=== PATIENT | male | born 1960 | race Caucasian/White ===

== ENCOUNTER 2016-05-07 08:30 | Emergency (ER) | payer OTHER ==
--- NOTE | 2016-05-07 08:41 | Emergency Department Record ---
History of Present Illness - General Chief Complaint: Back Pain/Injury Stated Complaint: BACK PAIN Time Seen by Provider: 05/07/16 08:39 Source: Patient Mode of Arrival: Ambulatory Limitations: No limitations - History of Present Illness Initial Comments: The patient is here due to waking up about 2 hours ago with R upper back pain. The pain is mild to moderate and is sharp and stabbing and is slightly worse with deep breaths, twisting and bending. There is no L sided CP, or any JERSON, cough, SOB or sweating. The patient denies any injury, trauma, recent travel, or hx of previous similar issues. The pain does radiate around the chest to the R ribs at times with deep breaths. MD Complaint: Back pain Onset/Timin -: Hour(s) Similar Symptoms Previously: No Place: Home Radiation: None Severity scale (1-10): 3 Quality: Dull Consistency: Constant Improves With: None Worsens With: Deep breaths/cough Context: Unknown Associated Symptoms: Denies other symptoms - Related Data Home Medications Medication Instructions Recorded Confirmed Last Taken Bupropion HCl [Bupropion Xl] 150 mg PO DAILY 10/18/13 05/07/16 10/18/13 Duloxetine HCl [Duloxetine HCl] 60 mg PO DAILY 10/18/13 05/07/16 10/17/13 Pantoprazole Sodium 40 mg PO DAILY 10/18/13 05/07/16 10/17/13 Divalproex Sodium [Depakote] 250 mg PO DAILY 05/07/16 05/07/16 Unknown Previous Rx's Medication Instructions Recorded Naproxen [Naprosyn] 500 mg PO BID #14 tablet. 05/07/16 Allergies Allergy/AdvReac Type Severity Reaction Status Date / Time No Known Drug Allergies Allergy Unverified 09/03/15 18:15 Travel Screening - Travel/Exposure Within Last 30 Days Have you traveled within the last 30 days?: No Review of Systems Constitutional: Denies: Chills, Fever Eyes: Denies: Eye discharge ENT: Denies: Congestion Respiratory: Denies: Cough, Dyspnea Past Medical History - SOCIAL HISTORY Smoking Status: Never smoker Alcohol Use: None Drug Use: None - RESPIRATORY Hx Respiratory Disorders: Yes Comment:: Pneumothorax - CARDIOVASCULAR Hx Cardio Disorders: Yes Hx Hypertension: Yes Hx Irregular Heartbeat: Yes - NEURO Hx Neuro Disorders: No - GI Hx GI Disorders: Yes 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 negative: Tenderness - Respiratory Respiratory exam: Normal lung sounds bilaterally, Chest wall tenderness (The pain is mildly reproducible with palpation to the R upper back medial to the scapula.). negative: Decreased breath sounds, Respiratory distress, Wheezes - Cardiovascular Cardiovascular Exam: Regular rate, Normal rhythm, Normal heart sounds - GI/Abdominal GI/Abdominal exam: Soft, Normal bowel sounds. negative: Tenderness - Extremities Extremities exam: Normal inspection, Full ROM, Normal capillary refill. negative: Calf tenderness, Tenderness - Neurological Neurological exam: Alert, Normal gait. negative: Abnormal gait, Motor sensory deficit Course Vital Signs 05/07/16 08:36 Temperature 98.0 F Pulse Rate 80 Respiratory 20 Rate Blood Pressure 136/92 Pulse Ox 95 - Reevaluation(s) Reevaluation #1: The patient is doing very well at this time and has had no tachycardia or tachypnea. He is resting comfortably with no anterior chest pain, SOB or JERSON. The pain is has mostly resolved with the Toradol and now he only feels it with certain twisting movements or bending. I explained to him the test results are all WNL and I strongly doubt any serious cardiac or pulmonary pathology. The patient feels comfortable going home and will see his PCP if not better in 2-3 days. He also is instructed to return for any increased pain, trouble breathing or fever. 05/07/16 09:59 05/07/16 10:20 Medical Decision Making - Data Complexity MDM Data: Labs Ordered and/or Reviewed, X-Ray Ordered and/or Reviewed, EKG Ordered and/or Reviewed - Lab Data Result diagrams: 05/07/16 08:55 05/07/16 08:55 - EKG Data -: EKG Interpreted by Me EKG: No Acute Changes, Normal EKG, Unchanged From Previous - Radiology Data Radiology results: Report reviewed (CXR: R lung WNL. L side with small effusion and pleurla thickening with incompletely healead L rib fx's.) Disposition Disposition: Discharge Clinical Impression: Thoracic back pain Qualifiers: Chronicity: acute Back pain laterality: right Qualified Code(s): M54.6 - Pain in thoracic spine Disposition: Home, Self-Care Condition: (1) Good Instructions: Muscle Strain (ED) Additional Instructions: Please take the Naprosyn for pain with food. Please see your PCP if not better in 2-3 days. Return to the ER for any increased pain, any L sided chest pain, or any trouble breathing, shortness of breath or fever. Prescriptions: Naproxen [Naprosyn] 500 mg PO BID #14 tablet.dr Forms: Patient Portal Access Time of Disposition: 09:57
[2016-05-07 09:03] LABS: HEMOGLOBIN 15.2 gm/dl (14.0-18.0); MEAN CELL VOLUME 91.6 fl (81-97); MEAN CORPUSCULAR HGB CONC 33.8 g/dl (32-36); MEAN PLATELET VOLUME 9.2 fl (7.4-10.4); PLATELET COUNT 488 K/uL (130-400); RED BLOOD COUNT 4.91 M/uL (4.40-5.70); RED CELL DISTRIBUTION WIDTH 14.7 % (11.5-14.5); WHITE BLOOD COUNT W/O DIFF 10.9 K/uL (4.2-12.2)
[2016-05-07 09:12] LABS: PLATELET ESTIMATE NORMAL (NORMAL)
[2016-05-07 09:14] LABS: ANION GAP 10.1 (7-16); BLOOD UREA NITROGEN 17 mg/dL (9-20); CARBON DIOXIDE 28.9 mmol/L (22-30); CREATINE PHOSPHOKINASE 49 U/L (55-170); EST GLOMERULAR FILTRATION RATE > 60 ml/min; GLUCOSE,RANDOM 202 mg/dL (70-110)
[2016-05-07] MEDS ORDERED: KETOROLAC 30 MG/ML VIAL IVP ONE (09:21)
[2016-05-07 09:23] LABS: CKMB 0.5 ug/L (0-6)
[2016-05-07 09:27] LABS: TROPONIN I < 0.012 ng/mL (0.00-0.034)
== END 2016-05-07 10:03 | disposition home or self-care (01) ==
LOC: ER 08:30
DX: M54.6 Pain in thoracic spine (principal); R07.89 Other chest pain; I10 Essential (primary) hypertension
CPT/HCPCS: 99284 ×2; 96374; 82550; 82553; 84484; 80048; 85379; 85027; 71020; 93005; 93010; J1885

== ENCOUNTER 2016-08-11 17:55 | Emergency (ER) | payer OTHER ==
[2016-08-11] MEDS ORDERED: 0.9 % SODIUM CHLORIDE 1,000 ML BAG IV ONE (18:15)
--- NOTE | 2016-08-11 18:18 | Emergency Department Record ---
History of Present Illness - General Chief Complaint: Fall Injury Stated Complaint: FELL INJURED BACK Time Seen by Provider: 08/11/16 18:05 Source: Patient Mode of Arrival: Ambulatory - History of Present Illness Initial Comments: The patient was folding some sheet metal on his driveway when it snapped back sending him onto his back onto the cement. He states he did not hit the back of his head. He took some motrin prior to arrival and came in here. Pain is around the lower chest and upper abdomen 360 degrees around, and is worse with any movement or deep breathing. He denies injury to his extremities, hips, neck or head. MD Complaint: Fall Onset/Timin -: Minutes(s) Fall From: Standing When Fall Occurred: Just prior to arrival Fall Witnessed: Yes, by family Place Fall Occurred: Home Loss of Consciousness: None Prolonged Down Time?: No Symptoms Prior to Fall: None Location: Back Severity: Moderate Severity scale (1-10): 7 Quality: Aching Associated Symptoms: Denies - Lorman Coma Scale Eye Response: (4) Open spontaneously Motor Response: (6) Obeys commands Verbal Response: (5) Oriented Kiran Total: 15 - Related Data Home Medications Medication Instructions Recorded Confirmed Last Taken Bupropion HCl [Bupropion Xl] 150 mg PO DAILY 10/18/13 08/11/16 10/18/13 Duloxetine HCl [Duloxetine HCl] 60 mg PO DAILY 10/18/13 08/11/16 10/17/13 Divalproex Sodium [Depakote] 250 mg PO DAILY 05/07/16 08/11/16 Unknown Previous Rx's Medication Instructions Recorded Naproxen [Naprosyn] 500 mg PO BID #14 tablet. 05/07/16 Diazepam [Valium] 10 mg PO TID PRN #7 tab 08/11/16 Hydrocodone/Acetaminophen [Walnut 1 tab PO Q8H PRN #7 tab 08/11/16 10mg/325mg] Allergies Allergy/AdvReac Type Severity Reaction Status Date / Time No Known Drug Allergies Allergy Verified 08/11/16 18:00 Travel Screening - Travel/Exposure Within Last 30 Days Have you traveled within the last 30 days?: No Review of Systems Reviewed: No additional complaints except as noted below Constitutional: Reports: As per HPI. Denies: Chills, Fever, Malaise, Night sweats, Weakness, Weight change Eyes: Reports: As per HPI. Denies: Eye discharge, Eye pain, Photophobia, Vision change ENT: Reports: As per HPI. Denies: Congestion, Dental pain, Ear pain, Epistaxis , Hearing loss, Throat pain Respiratory: Reports: As per HPI. Denies: Cough, Dyspnea, Hemoptysis, Stridor, Wheezes Cardiovascular: Reports: As per HPI. Denies: Arrhythmia, Chest pain, Dyspnea on exertion, Edema, Murmurs, Orthopnea, Palpitations, Paroxysmal nocturnal dyspnea, Rheumatic Fever, Syncope Endocrine: Reports: As per HPI. Denies: Fatigue, Heat or cold intolerance, Polydipsia, Polyuria Gastrointestinal: Reports: As per HPI. Denies: Abdominal pain, Constipation, Diarrhea, Hematemesis, Hematochezia, Melena, Nausea, Vomiting Genitourinary: Reports: As per HPI. Denies: Dysuria, Frequency, Hematuria, Incontinence, Retention, Testicular pain, Testicular mass, Urgency Musculoskeletal: Reports: As per HPI. Denies: Arthralgia, Back pain, Gout, Joint swelling, Myalgia, Neck pain Skin: Reports: As per HPI. Denies: Bruising, Change in color, Change in hair/ nails, Lesions, Pruritus, Rash Neurological: Reports: As per HPI. Denies: Abnormal gait, Confusion, Headache, Numbness, Paresthesias, Seizure, Tingling, Tremors, Vertigo, Weakness Psychiatric: Reports: As per HPI. Denies: Anxiety, Auditory hallucinations, Depression, Homicidal thoughts, Suicidal thoughts, Visual hallucinations Hematological/Lymphatic: Reports: As per HPI. 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 - Hx Genitourinary Disorders: No - ENDOCRINE Hx Endocrine Disorders: No - MUSCULOSKELETAL Hx Musculoskeletal Disorders: No - PSYCH Hx Psych Problems: No - HEMATOLOGY/ONCOLOGY Hx Hematology/Oncology Disorders: No Family Medical History Any Significant Family History?: Yes Hx HTN: Father Physical Exam - General General Appearance: Alert, Oriented x3, Cooperative, Moderate distress - Head Head exam: Atraumatic, Normal inspection - Eye Eye exam: Normal appearance, PERRL Pupils: Normal accommodation - ENT ENT exam: Normal exam, Mucous membranes moist, Normal external ear exam, Normal orophraynx, TM's normal bilaterally Ear exam: Normal external inspection. negative: External canal tenderness Nasal Exam: Normal inspection. negative: Discharge, Sinus tenderness Mouth exam: Normal external inspection, Tongue normal Teeth exam: Normal inspection. negative: Dental caries Throat exam: Normal inspection. negative: Tonsillar erythema, Tonsillar exudate - Neck Neck exam: Normal inspection, Full ROM. negative: Lymphadenopathy, Meningismus , Tenderness - Respiratory Respiratory exam: Normal lung sounds bilaterally, Chest wall tenderness (tender diffusely around lower ribs on lateral compression, no crepitance or point tenderness). negative: Respiratory distress - Cardiovascular Cardiovascular Exam: Regular rate, Normal rhythm, Normal heart sounds - GI/Abdominal GI/Abdominal exam: Soft, Normal bowel sounds, Tenderness (tender across upper abdomen bilaterally just beneath ribs, no rigidity) - Rectal Rectal exam: Deferred - exam: Deferred - Extremities Extremities exam: Normal inspection, Full ROM, Normal capillary refill. negative: Calf tenderness, Pedal edema, Tenderness - Back Back exam: Reports: Normal inspection, Full ROM, Paraspinal tenderness (lower T spine bilaterally ). Denies: Muscle spasm, Rash noted, Tenderness - Neurological Neurological exam: Alert, CN II-XII intact, Normal gait, Oriented X3, Reflexes normal - Psychiatric Psychiatric exam: Normal affect, Normal mood - Skin Skin exam: Diaphoretic (trace diaphoretic on his back, just came in from 85 degree day.), Dry, Intact, Normal color, Warm Course Vital Signs 08/11/16 18:00 Temperature 98.6 F Pulse Rate 83 Respiratory 20 Rate Blood Pressure 146/83 Pulse Ox 95 - Reevaluation(s) Reevaluation #1: Patient is requesting more pain medication. Awaiting CT reading. 08/11/16 19:49 Reevaluation #2: Diaphoresis has resolved. Patient is ready for DC. 08/11/16 20:18 Medical Decision Making - Management Options MDM Management: No Additional Work-up Planned - Data Complexity MDM Data: Labs Ordered and/or Reviewed, X-Ray Ordered and/or Reviewed (Contrast Chest/Abd/Pelvis CT: negative for acute fractures or abnormalities. Per radiologist.) - Lab Data Result diagrams: 08/11/16 18:28 08/11/16 18:28 Disposition Disposition: Discharge Clinical Impression: Contusion, trunk, multiple sites Qualifiers: Encounter type: initial encounter Qualified Code(s): S20.20XA - Contusion of thorax, unspecified, initial encounter Fall Qualifiers: Encounter type: initial encounter Qualified Code(s): W19.XXXA - Unspecified fall, initial encounter Disposition: Home, Self-Care Condition: (1) Good Instructions: Fall Prevention for Older Adults (ED) Additional Instructions: No lifting bending twisting. Continue present meds. Walnut 1 every 8 hours for severe pain IF NEEDED. Valium 1 every 8 hours for Muscle spasm IF NEEDED. Both likely to cause drowsiness--no driving or operating machinery, etc. Follow up with PCP as needed. Off work 3 days. Prescriptions: Diazepam [Valium] 10 mg PO TID PRN #7 tab PRN Reason: Muscle Spasms Hydrocodone/Acetaminophen [Walnut 10mg/325mg] 1 tab PO Q8H PRN #7 tab PRN Reason: Pain - General
[2016-08-11 18:33] LABS: BASO % 0.2 % (0-6); EOS % 0.9 % (0-6); GRAN % 53.1 % (47-80); HEMATOCRIT 45.1 % (42.0-52.0); HEMOGLOBIN 15.4 gm/dl (14.0-18.0); LYMPH % 36.1 % (16-45); MEAN CELL VOLUME 92.4 fl (81-97); MEAN CORPUSCULAR HEMOGLOBIN 31.6 pg (27-33); MEAN CORPUSCULAR HGB CONC 34.1 g/dl (32-36); MEAN PLATELET VOLUME 9.5 fl (7.4-10.4); MONO % 9.7 % (0-9); PLATELET COUNT 473 K/uL (130-400); RED BLOOD COUNT 4.88 M/uL (4.40-5.70); WHITE BLOOD COUNT W/O DIFF 12.3 K/uL (4.2-12.2)
[2016-08-11 18:35] LABS: URINE APPEARANCE CLEAR; URINE BILIRUBIN SMALL (NEGATIVE); URINE BLOOD NEGATIVE (NEGATIVE); URINE COLOR YELLOW; URINE GLUCOSE (UA) NEGATIVE (NEGATIVE); URINE KETONE TRACE (NEGATIVE); URINE LEUKOCYTE ESTERASE NEGATIVE (NEGATIVE); URINE NITRITE NEGATIVE (NEGATIVE); URINE PROTEIN TRACE (NEGATIVE)
[2016-08-11] MEDS ORDERED: ONDANSETRON HCL IV 4 MG/2 ML VIAL IVP ONE (18:35)
[2016-08-11] MEDS ORDERED: ORPHENADRINE CITRATE 60MG/2ML VIAL IVP ONE (18:35)
[2016-08-11] MEDS ORDERED: HYDROMORPHONE HCL 1 MG/ML CPJ IVP ONE ×2 (18:35→19:48)
[2016-08-11 18:45] LABS: ANION GAP 12.4 (7-16); BLOOD UREA NITROGEN 22 mg/dL (9-20); CARBON DIOXIDE 28.6 mmol/L (22-30); CREATININE 1.2 mg/dL (0.66-1.25); EST GLOMERULAR FILTRATION RATE > 60 ml/min; GLUCOSE,RANDOM 168 mg/dL (70-110); LIPASE 78 U/L (23-300)
[2016-08-11 18:46] LABS: INR 0.92; PARTIAL THROMBOPLASTIN TIME 27.4 SECONDS (24.5-39.1); PROTHROMBIN TIME (PATIENT) 10.4 SECONDS (9.5-12.1)
[2016-08-11] MEDS ORDERED: HYDROCODONE/APAP 10/325 TABLET PO ONE (20:10)
[2016-08-11] MEDS ORDERED: DIAZEPAM 5 MG TABLET PO ONE (20:10)
--- NOTE | 2016-08-12 08:56 | CT SCAN REPORT ---
EXAM: CT SCAN OF THE CHEST WITH CONTRAST HISTORY: BACK PAIN AND ANTERIOR BILATERAL RIB PAIN STATUS POST FALL. TECHNIQUE: Standard CT imaging of the chest was performed in the axial plane with contrast. 100 ml of Omnipaque 300 were administered. Additional coronal and sagittal reformatted images were also performed. Comparison: 10/18/13. Encounter: Initial. FINDINGS: The heart and great vessels are normal. There is no mediastinal or hilar lymphadenopathy. There is stable parenchymal scarring at the left lung base. The lungs are clear. There are no acute infiltrates or effusions. There is no pneumothorax. There are multiple old healed left rib fractures, all of which appear unchanged. There is chronic deformity of the anterior ribs and xiphoid process of the scapula. These areas are unchanged. There is no visible acute fracture. Degenerative changes are present within the thoracic spine. The spleen is surgically absent. The upper abdomen is otherwise unremarkable. IMPRESSION: 1. NO ACUTE INTRATHORACIC PATHOLOGY. 2. CHRONIC FINDINGS ABOVE. JOB NUMBER: [id number] [facility]
--- NOTE | 2016-08-12 09:02 | CT SCAN REPORT ---
EXAM: CT SCAN OF THE ABDOMEN AND PELVIS WITH CONTRAST HISTORY: BACK PAIN STATUS POST FALL ON CEMENT. TECHNIQUE: Standard CT imaging of the abdomen and pelvis was performed with contrast. 100 ml of Omnipaque 300 were administered. Comparison: 10/18/13. FINDINGS: The liver is normal. The gallbladder, biliary tree, pancreas, and adrenal glands are normal. The patient is status post splenectomy. There are multiple old healed left lower rib fractures. There is chronic deformity of the left lower ribs and anterior costicartilages. These areas are unchanged. The kidneys and ureters are normal. The aorta is normal in caliber. There are scattered diverticula within the sigmoid colon with no evidence for acute diverticulitis. The large and small bowel loops are otherwise normal. There is no pneumoperitoneum or ascites. The urinary bladder and prostate gland appear normal. Extensive degenerative changes are present within the lumbar spine. There are no acute osseous abnormalities. IMPRESSION: 1. NO ACUTE INTRAABDOMINAL PATHOLOGY. 2. STATUS POST SPLENECTOMY. 3. OLD HEALED RIB FRACTURES. 4. EXTENSIVE MULTILEVEL DEGENERATIVE CHANGES WITHIN THE LUMBAR SPINE. 5. SIGMOID DIVERTICULOSIS WITH NO DIVERTICULITIS. JOB NUMBER: [id number] [facility]
== END 2016-08-11 20:55 | disposition home or self-care (01) ==
LOC: ER 17:55
DX: S20.20XA Contusion of thorax, unspecified, initial encounter (principal); R07.89 Other chest pain; R51 Headache; M54.6 Pain in thoracic spine; R10.11 Right upper quadrant pain; R10.12 Left upper quadrant pain; W18.09XA Striking against other object with subsequent fall, initial encounter; Y92.008 Other place in unspecified non-institutional (private) residence as the place of occurrence of the external cause
CPT/HCPCS: 99284 ×2; 96376; 96374; 96375; 83690; 85025; 85730; 85610; 80048; 81003; 71260; 74177; Q9967; J3490 ×2; J2405; J1170; J2360; J7030

== ENCOUNTER 2016-09-19 11:04 | Emergency (ER) | payer OTHER ==
--- NOTE | 2016-09-19 11:50 | Emergency Department Record ---
History of Present Illness - General Chief Complaint: Laceration(s) Stated Complaint: LAC ON FOREHEAD Time Seen by Provider: 09/19/16 11:45 Source: Patient Mode of Arrival: Ambulatory Limitations: No limitations - History of Present Illness Initial Commments: The patient fell out of bed 9-10 hours ago and sustained a laceration to his forehead. He denies any LOC, SCHERER, neck pain or nausea. He states his Td is not utd. Onset/Timin -: Hour(s) Place: Home Context: Accidental - Kiran Coma Scale Eye Response: (4) Open spontaneously Motor Response: (6) Obeys commands Verbal Response: (5) Oriented Baldwin Total: 15 - Related Data Home Medications Medication Instructions Recorded Confirmed Last Taken Bupropion HCl [Bupropion Xl] 150 mg PO DAILY 10/18/13 09/19/16 09/19/16 Duloxetine HCl [Duloxetine HCl] 60 mg PO DAILY 10/18/13 09/19/16 09/18/16 Divalproex Sodium [Depakote] 250 mg PO DAILY 05/07/16 09/19/16 09/18/16 Previous Rx's Medication Instructions Recorded Naproxen [Naprosyn] 500 mg PO BID #14 tablet. 05/07/16 Cephalexin [Keflex] 500 mg PO QID #20 cap 09/19/16 Allergies Allergy/AdvReac Type Severity Reaction Status Date / Time No Known Drug Allergies Allergy Verified 09/19/16 11:35 Travel Screening - Travel/Exposure Within Last 30 Days Have you traveled within the last 30 days?: No - Travel/Exposure Within Last Year Have you traveled outside the [place] 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 negative: Atraumatic, Normal inspection (There is a 3 cm laceration to the mid frontal area.) Image of Face/Head: 1 - Oblique 3 cm lac - Eye Eye exam: Normal appearance, PERRL, EOMI - ENT ENT exam: Normal exam, Mucous membranes moist, Normal external ear exam, Normal orophraynx, TM's normal bilaterally (Neg hemotympanum.) - Neck Neck exam: Normal inspection, Full ROM. negative: Tenderness (There is no posterior tenderness.) - Respiratory Respiratory exam: Normal lung sounds bilaterally. negative: Respiratory distress - Cardiovascular Cardiovascular Exam: Regular rate, Normal rhythm, Normal heart sounds - Neurological Neurological exam: Alert, Normal gait, Oriented X3, Other (Neg Drift and Rhomberg.). negative: Abnormal gait, Motor sensory deficit Course Vital Signs 09/19/16 11:25 Temperature 98.1 F Pulse Rate [ 88 Pulse Ox Probe] Respiratory 16 Rate Blood Pressure 127/80 [Left Arm] Pulse Ox 94 L - Reevaluation(s) Reevaluation #1: Procedure note: The forehead lac was cleansed with betadine and anesth. with Lido 1% with Epi. The wound was explored and cleansed with sterile saline. The lac was then sutured with 6 5.0 nylon sutures. There were no complications. 09/19/16 12:23 Reevaluation #2: The patient is doing very well at this time. He denies any SCHERER, nausea or visual changes. 09/19/16 12:27 Disposition Disposition: Discharge Clinical Impression: Laceration of forehead Qualifiers: Encounter type: initial encounter Qualified Code(s): S01.81XA - Laceration without foreign body of other part of head, initial encounter Disposition: Home, Self-Care Condition: (1) Good Instructions: Laceration (ED) Additional Instructions: Keep dry for 2 days then no soaking. Watch for signs of infection. Have the sutures removed in 7 days. Take Keflex as directed. Prescriptions: Cephalexin [Keflex] 500 mg PO QID #20 cap Forms: Patient Portal Access Time of Disposition: 12:25 Quality - Quality Measures Quality Measures: N/A - Blood Pressure Screening View Details: Yes Does Patient Have Any of the Following: No Blood Pressure Classification: Pre-Hypertensive BP Reading Systolic Measurement: 108 Diastolic Measurement: 81 Screening for High Blood Pressure: < Pre-Hypertensive BP, F/U Documented > [ [id number]] Pre-Hypertensive Follow-up Interventions: Referral to alternative/primary care provider.
[2016-09-19] MEDS: Diph,Pert(Acell),Tet Vac 0.5 ML SYR IM ONE (12:32)
== END 2016-09-19 12:40 | disposition home or self-care (01) ==
LOC: ER 11:04
DX: S01.81XA Laceration without foreign body of other part of head, initial encounter (principal); W06.XXXA Fall from bed, initial encounter; Y92.009 Unspecified place in unspecified non-institutional (private) residence as the place of occurrence of the external cause
CPT/HCPCS: 12013; 90715; 96372; 99283

== ENCOUNTER 2016-09-26 12:30 | Emergency (ER) | payer OTHER ==
--- NOTE | 2016-09-26 12:40 | Emergency Department Record ---
History of Present Illness - General Chief Complaint: Suture removal Stated Complaint: REMOVE STITCHES Time Seen by Provider: 09/26/16 12:33 Source: Patient, RN notes reviewed - History of Present Illness Initial Comments: suture removal MD Complaint: Suture/staple removal Onset/Timin -: Days(s) - Related Data Home Medications Medication Instructions Recorded Confirmed Last Taken Bupropion HCl [Bupropion Xl] 150 mg PO DAILY 10/18/13 09/19/16 09/19/16 Duloxetine HCl [Duloxetine HCl] 60 mg PO DAILY 10/18/13 09/19/16 09/18/16 Divalproex Sodium [Depakote] 250 mg PO DAILY 05/07/16 09/19/16 09/18/16 Previous Rx's Medication Instructions Recorded Naproxen [Naprosyn] 500 mg PO BID #14 tablet. 05/07/16 Cephalexin [Keflex] 500 mg PO QID #20 cap 09/19/16 Allergies Allergy/AdvReac Type Severity Reaction Status Date / Time No Known Drug Allergies Allergy Verified 09/19/16 11:35 Review of Systems Reviewed: No additional complaints except as noted below Constitutional: Reports: As per HPI. Denies: Chills, Fever, Malaise, Night sweats, Weakness, Weight change Eyes: Reports: As per HPI. Denies: Eye discharge, Eye pain, Photophobia, Vision change ENT: Reports: As per HPI. Denies: Congestion, Dental pain, Ear pain, Epistaxis , Hearing loss, Throat pain Respiratory: Reports: As per HPI. Denies: Cough, Dyspnea, Hemoptysis, Stridor, Wheezes Cardiovascular: Reports: As per HPI. Denies: Arrhythmia, Chest pain, Dyspnea on exertion, Edema, Murmurs, Orthopnea, Palpitations, Paroxysmal nocturnal dyspnea, Rheumatic Fever, Syncope Endocrine: Reports: As per HPI. Denies: Fatigue, Heat or cold intolerance, Polydipsia, Polyuria Gastrointestinal: Reports: As per HPI. Denies: Abdominal pain, Constipation, Diarrhea, Hematemesis, Hematochezia, Melena, Nausea, Vomiting Genitourinary: Reports: As per HPI. Denies: Dysuria, Frequency, Hematuria, Incontinence, Retention, Testicular pain, Testicular mass, Urgency Musculoskeletal: Reports: As per HPI. Denies: Arthralgia, Back pain, Gout, Joint swelling, Myalgia, Neck pain Skin: Reports: As per HPI. Denies: Bruising, Change in color, Change in hair/ nails, Lesions, Pruritus, Rash Neurological: Reports: As per HPI. Denies: Abnormal gait, Confusion, Headache, Numbness, Paresthesias, Seizure, Tingling, Tremors, Vertigo, Weakness Psychiatric: Reports: As per HPI. Denies: Anxiety, Auditory hallucinations, Depression, Homicidal thoughts, Suicidal thoughts, Visual hallucinations Hematological/Lymphatic: Reports: As per HPI. 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 - Hx Genitourinary Disorders: No - ENDOCRINE Hx Endocrine Disorders: No - MUSCULOSKELETAL Hx Musculoskeletal Disorders: No - PSYCH Hx Psych Problems: Yes Hx Anxiety: Yes Hx Depression: Yes - HEMATOLOGY/ONCOLOGY Hx Hematology/Oncology Disorders: No Family Medical History Hx HTN: Father Physical Exam - General General Appearance: Alert, Oriented x3, Cooperative, No acute distress - Head Head exam: Normal inspection - Eye Eye exam: Normal appearance, PERRL Pupils: Normal accommodation - ENT ENT exam: Normal exam, Mucous membranes moist, Normal external ear exam, Normal orophraynx, TM's normal bilaterally Ear exam: Normal external inspection. negative: External canal tenderness Nasal Exam: Normal inspection. negative: Discharge, Sinus tenderness Mouth exam: Normal external inspection, Tongue normal Teeth exam: Normal inspection. negative: Dental caries Throat exam: Normal inspection. negative: Tonsillar erythema, Tonsillar exudate - Neck Neck exam: Normal inspection, Full ROM. negative: Tenderness - Respiratory Respiratory exam: Normal lung sounds bilaterally. negative: Respiratory distress - Cardiovascular Cardiovascular Exam: Regular rate, Normal rhythm, Normal heart sounds - GI/Abdominal GI/Abdominal exam: Soft, Normal bowel sounds. negative: Tenderness - Rectal Rectal exam: Deferred - exam: Deferred - Extremities Extremities exam: Normal inspection, Full ROM, Normal capillary refill. negative: Tenderness - Back Back exam: Reports: Normal inspection, Full ROM. Denies: Muscle spasm, Rash noted, Tenderness - Neurological Neurological exam: Alert, Normal gait, Oriented X3, Reflexes normal - Psychiatric Psychiatric exam: Normal affect, Normal mood - Skin Skin exam: Dry, Intact, Normal color, Warm, Other (laceration healing nicely and no signs of infection) Disposition Clinical Impression: Visit for suture removal Disposition: Home, Self-Care Condition: (1) Good Instructions: Stitches Removal (ED) Forms: Patient Portal Access Time of Disposition: 12:39 Quality - Quality Measures Quality Measures: N/A - Blood Pressure Screening Does Patient Have Any of the Following: No Blood Pressure Classification: Pre-Hypertensive BP Reading Systolic Measurement: 153 Diastolic Measurement: 82 Screening for High Blood Pressure: < First Hypertensive BP, F/U Documented > [ G8950] Pre-Hypertensive Follow-up Interventions: Referral to alternative/primary care provider. First Hypertensive Follow-up Interventions: Referral to alternative/primary care provider.
== END 2016-09-26 12:50 | disposition home or self-care (01) ==
LOC: ER 12:30
DX: Z48.02 Encounter for removal of sutures (principal)

== ENCOUNTER 2017-07-11 19:01 | Emergency (ER) | payer BC ==
[2017-07-11] MEDS ORDERED: Diph,Pert(Acell),Tet Vac 0.5 ML SYR IM ONE (19:21)
--- NOTE | 2017-07-11 19:25 | Emergency Department Record ---
History of Present Illness - General Chief Complaint: Laceration(s) Stated Complaint: LACERATION Time Seen by Provider: 07/11/17 19:07 Source: Patient, Family Mode of Arrival: Ambulatory Limitations: No limitations - History of Present Illness Initial Commments: 56 yo male presents with a laceration to the left thumb. He injured his thumb cutting bread with a knife. No weakness, numbness, or tingling. He is unsure of the last tetanus shot. -: Minutes(s) Extremity Location: Left: Hand (Thumb) Place: Home Context: Accidental Treatments Prior to Arrival: Other - Kiran Coma Scale Eye Response: (4) Open spontaneously Motor Response: (6) Obeys commands Verbal Response: (5) Oriented [place] Total: 15 - Related Data Previous Rx's Medication Instructions Recorded Cephalexin [Keflex] 500 mg PO TID #21 cap 07/11/17 Allergies Allergy/AdvReac Type Severity Reaction Status Date / Time No Known Drug Allergies Allergy Unverified 03/29/17 07:28 Review of Systems Constitutional: Denies: Chills, Fever, Weakness Eyes: Denies: Eye discharge ENT: Denies: Congestion, Throat pain Respiratory: Denies: Cough Cardiovascular: Denies: Chest pain Endocrine: Denies: Fatigue Gastrointestinal: Denies: Nausea, Vomiting Genitourinary: Denies: Dysuria, Frequency Musculoskeletal: Denies: Arthralgia, Back pain, Joint swelling, Myalgia Skin: Reports: Other (thumb laceration). 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 - Hx Genitourinary Disorders: No - ENDOCRINE Hx Endocrine Disorders: No - MUSCULOSKELETAL Hx Musculoskeletal Disorders: No - PSYCH Hx Psych Problems: Yes Hx Anxiety: Yes Hx Depression: Yes - HEMATOLOGY/ONCOLOGY Hx Hematology/Oncology Disorders: No Family Medical History Hx HTN: Father Physical Exam - General General Appearance: Alert, Oriented x3, Cooperative, No acute distress Limitations: No limitations - Head Head exam: Atraumatic, Normal inspection - Eye Eye exam: Normal appearance - ENT ENT exam: Normal exam Ear exam: Normal external inspection Nasal Exam: Normal inspection Mouth exam: Normal external inspection - Neck Neck exam: Normal inspection - Cardiovascular Peripheral Pulses: 2+: Radial (L) - Extremities Extremities exam: Full ROM, Normal capillary refill, Other (full thumb flexion and extension, sensation is intact). negative: Normal inspection, Tenderness Image of Hand: 1 - 1 cm superficial linear laceration - Neurological Neurological exam: Alert, Oriented X3. negative: Motor sensory deficit - Psychiatric Psychiatric exam: Normal affect, Normal mood - Skin Skin exam: Dry, Intact, Normal color, Warm Course Vital Signs 07/11/17 19:09 Temperature 98.1 F Pulse Rate [ 73 Pulse Ox Probe] Respiratory 20 Rate Blood Pressure 137/98 [Left Arm] Pulse Ox 95 - Reevaluation(s) Reevaluation #1: Procedure Thumb laceration 1cm Betadine prep NS irrigation Clean without FB Prolene 4-0 Suture 5 sutures Good wound approximation Tolerated well We discussed signs and symptoms for infection. 07/11/17 19:26 07/11/17 20:09 Keflex given with his history of asplenia Disposition Disposition: Discharge Clinical Impression: Thumb laceration Disposition: Home, Self-Care Condition: (1) Good Instructions: Laceration (ED) Additional Instructions: Return immediately if you have pain, redness, pus, fever, bleeding or swelling Return in 8 days for suture removal Prescriptions: Cephalexin [Keflex] 500 mg PO TID #21 cap Forms: Patient Portal Access Time of Disposition: 19:43 Quality - Quality Measures Quality Measures: N/A - Blood Pressure Screening Does Patient Have Any of the Following: Active Dx of HTN Blood Pressure Classification: Hypertensive Reading Systolic Measurement: 137 Diastolic Measurement: 98 Screening for High Blood Pressure: Patient Exclusion, Hx of HTN [G9744]
== END 2017-07-11 19:54 | disposition home or self-care (01) ==
LOC: ER 19:01
DX: S61.011A Laceration without foreign body of right thumb without damage to nail, initial encounter (principal); W26.0XXA Contact with knife, initial encounter; Y92.009 Unspecified place in unspecified non-institutional (private) residence as the place of occurrence of the external cause; I10 Essential (primary) hypertension
CPT/HCPCS: 12001; 90715; 96372; 99283

== ENCOUNTER 2017-07-19 08:45 | Emergency (ER) | payer BC ==
--- NOTE | 2017-07-19 09:03 | Emergency Department Record ---
History of Present Illness - General Chief Complaint: Suture removal Stated Complaint: STITCHES REMOVED Time Seen by Provider: 07/19/17 08:48 Source: Patient Mode of arrival: Ambulatory Limitations: No limitations - History of Present Illness Initial Comments: 56 yo male presents for suture removal of a thumb laceration. He lacerated the thumb cutting bread. No concerns about the ongoing healing. MD Complaint: Suture/staple removal, Wound re-check -: Days(s) (8) Initial Visit For: Laceration Returns Today for: Staple/stitch removal, Wound recheck Symptoms Since Prior Visit: No new symptoms Associated Symptoms: None - Related Data Allergies Allergy/AdvReac Type Severity Reaction Status Date / Time No Known Drug Allergies Allergy Verified 07/19/17 08:51 Review of Systems Constitutional: Denies: Chills, Fever ENT: Denies: Congestion, Throat pain Respiratory: Denies: Cough Endocrine: Denies: Fatigue Gastrointestinal: Denies: Diarrhea, Nausea, Vomiting Musculoskeletal: Denies: Arthralgia, Joint swelling, Myalgia Skin: Denies: Bruising, Change in color, Rash Neurological: Denies: Tingling, Weakness Psychiatric: Denies: Anxiety Hematological/Lymphatic: Denies: Easy bleeding, Easy bruising Past Medical History - SOCIAL HISTORY Smoking Status: Never smoker Drug Use: None - RESPIRATORY Hx Respiratory Disorders: Yes Comment:: Pneumothorax - CARDIOVASCULAR Hx Cardio Disorders: Yes Hx Hypertension: Yes Hx Irregular Heartbeat: Yes - NEURO Hx Neuro Disorders: No - GI Hx GI Disorders: Yes 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 - Hx Genitourinary Disorders: No - ENDOCRINE Hx Endocrine Disorders: No - MUSCULOSKELETAL Hx Musculoskeletal Disorders: No - PSYCH Hx Psych Problems: Yes Hx Anxiety: Yes Hx Depression: Yes - HEMATOLOGY/ONCOLOGY Hx Hematology/Oncology Disorders: No Family Medical History Hx HTN: Father Physical Exam - General General Appearance: Alert, Oriented x3, Cooperative, No acute distress Limitations: No limitations - Head Head exam: Atraumatic - Eye Eye exam: Normal appearance - ENT ENT exam: Normal exam Ear exam: Normal external inspection Nasal Exam: Normal inspection - Neck Neck exam: Normal inspection - exam: Deferred - Extremities Extremities exam: Normal inspection, Normal capillary refill - Neurological Neurological exam: Alert, Oriented X3. negative: Motor sensory deficit - Psychiatric Psychiatric exam: Normal affect, Normal mood - Skin Skin exam: Dry, Intact, Normal color, Warm Course - Reevaluation(s) Reevaluation #1: Sutures removed without difficulty Steristrips placed for additional security. 07/19/17 08:50 Home care and reasons to return explained 07/19/17 09:10 Disposition Disposition: Discharge Clinical Impression: Visit for suture removal Disposition: Home, Self-Care Condition: (1) Good Instructions: Stitches Removal (ED) Additional Instructions: Return if you have any concerns about the healing of the laceration Forms: Patient Portal Access Time of Disposition: 09:04 Quality - Quality Measures Quality Measures: N/A - Blood Pressure Screening Does Patient Have Any of the Following: No Blood Pressure Classification: Pre-Hypertensive BP Reading Systolic Measurement: 138 Diastolic Measurement: 87 Screening for High Blood Pressure: < Pre-Hypertensive BP, F/U Documented > [ G8950] Pre-Hypertensive Follow-up Interventions: Referral to alternative/primary care provider.
== END 2017-07-19 09:10 | disposition home or self-care (01) ==
LOC: ER 08:45
DX: Z48.02 Encounter for removal of sutures (principal)